=== PATIENT | male | born 1985 | race African-American/Black ===

== ENCOUNTER 2018-09-16 18:49 | Emergency (ER) | payer OTHER ==
[~2018-09-16] VITALS: Ht 182.9 cm; Wt 77.1 kg
[2018-09-16] MEDS ORDERED: LEVETIRACETAM 500 MG TAB PO ONE (20:45)
[2018-09-16 21:15] VITALS: BP 121/81
== END 2018-09-16 21:58 | disposition home or self-care (01) ==
LOC: ER 18:49 → EDBD 18:49 → ER 21:58
DX: S01.112A Laceration without foreign body of left eyelid and periocular area, initial encounter (principal); R56.9 Unspecified convulsions; M25.512 Pain in left shoulder; M25.511 Pain in right shoulder; W22.8XXA Striking against or struck by other objects, initial encounter; Y93.89 Activity, other specified; Y92.89 Other specified places as the place of occurrence of the external cause; Y99.8 Other external cause status
CPT/HCPCS: 12011; 70450